=== PATIENT | male | born 1970 | race Hispanic/Latino ===

== ENCOUNTER 2022-07-24 16:33 | Inpatient (IN) | payer OTHER ==
[~2022-07-24] VITALS: Ht 172.7 cm; Wt 61.5 kg
[2022-07-24] MEDS ORDERED: 0.9%NACL 1000ML 1,000 ML IV ONE (17:00)
[2022-07-24] MEDS ORDERED: KETOROLAC 15MG/ML VIAL (15MG/ML) IV ONE (17:30)
[2022-07-24 17:31] LABS: ABG OXYGEN SATURATION 74.8 % (95.0-99.0); BASE EXCESS,VENOUS BLOOD GAS -16.1 (-2.0-3.0); HCO3,VENOUS BLOOD GAS 10.5 (21.0-28.0); PCO2,VENOUS BLOOD GAS 28 (35-48); PH,VENOUS BLOOD GAS 7.194 (7.350-7.450)
[2022-07-24 17:34] LABS: HEMATOCRIT 38.9 % (42-54); MEAN CORPUSCULAR HEMOGLOBIN 33.2 pg (27.0-33.0); MEAN CORPUSCULAR HGB CONC 34.2 g/dL (32.0-36.0); PLATELET COUNT (AUTO) 268 K/uL (130-400); RED BLOOD CELL COUNT(AUTO) 4.01 MIL/uL (4.50-6.20); RED CELL DISTRIBUTION WIDTH 12.1 % (11.0-15.5); WHITE BLOOD COUNT (AUTO) 5.9 K/uL (4.8-10.8)
[2022-07-24 17:39] LABS: BASOPHILS % (AUTO) 0.2 % (0.0-5.0); LYMPHOCYTES % (AUTO) 7.2 % (21.0-51.0); MONOCYTES % (AUTO) 2.2 % (3.0-13.0); NEUTROPHILS % (AUTO) 90.1 % (40.0-77.0)
[2022-07-24] MEDS ORDERED: INSULIN HUMULIN R 100 UNIT/ML 3ML IV ONE (18:00)
[2022-07-24] MEDS ORDERED: ONDANSETRON 4MG INJ IVP ONE (18:00)
[2022-07-24 18:01] LABS: ALBUMIN 2.7 g/dL (3.5-5.0); CREATININE 1.4 mg/dL (0.5-1.5); POTASSIUM 5.1 mmol/L (3.5-5.1); TOTAL PROTEIN, SERUM 6.5 g/dL (6.0-8.3)
[2022-07-24 18:06] LABS: HEMOGLOBIN A1C 9.8 % (4.0-6.0)
[2022-07-24] MEDS ORDERED: MORPHINE 4 MG SYG IVP ONE (19:00)
[2022-07-24] MEDS ORDERED: ZOLPIDEM TARTRATE 5 MG TAB PO PRN (19:30)
[2022-07-24] MEDS ORDERED: MANNITOL 20% IV SCH (19:30)
[2022-07-24] MEDS ORDERED: ONDANSETRON 4MG INJ IV PRN (19:30)
[2022-07-24] MEDS ORDERED: POTASSIUM CHLORIDE 10MEQ/100ML 100 ML IV PRN (19:30)
[2022-07-24] MEDS ORDERED: POTASSIUM CHLORIDE 10% ELIXIR 20 MEQ/15 ML UDCUP PO PRN (19:30)
[2022-07-24] MEDS ORDERED: INSULIN REGULAR, HUMAN 3ML 100 UNIT in 0.9%NACL 100ML 99 ML IV PRN ×2 (19:30)
[2022-07-24] MEDS ORDERED: ACETAMINOPHEN 325 MG TAB PO PRN ×2 (19:30)
[2022-07-24] MEDS ORDERED: KCL 20 MEQ ERTAB PO PRN (19:30)
[2022-07-24] MEDS ORDERED: DEXTROSE 5 %-0.45 % NACL 1,000 ML IV SCH (19:30)
[2022-07-24] MEDS ORDERED: POTASSIUM CHLORIDE 20 MEQ/10 ML VIAL IV SCH (19:30)
[2022-07-24] MEDS ORDERED: MAGNESIUM 2GM PREMIX 50ML 50 ML IV SCH (19:30)
[2022-07-24] MEDS ORDERED: INSULIN REGULAR, HUMAN 3ML 100 UNIT in 0.9%NACL 100ML 100 ML IV SCH ×2 (19:30)
[2022-07-24] MEDS ORDERED: LIDOCAINE HCL-MPF 1% 2ML VIAL IV PRN (19:30)
[2022-07-24] MEDS ORDERED: POTASSIUM CHLORIDE 20MEQ/100ML 100 ML IV PRN (19:30)
[2022-07-24] MEDS ORDERED: 0.9%NACL 1000ML 1,000 ML IV SCH (19:30)
[2022-07-24 21:10] LABS: CREATININE 1.3 mg/dL (0.5-1.5); MAGNESIUM 1.8 mg/dL (1.80-2.40); POTASSIUM 4.4 mmol/L (3.5-5.1)
[2022-07-24] MEDS: FAMOTIDINE 20MG VIAL IV SCH (21:19)
[2022-07-24] MEDS ORDERED: ALBUTEROL INHALER 90MCG/INH IH PRN (21:30)
[2022-07-24 22:51] LABS: APPEARANCE,URINE CLEAR (CLEAR); BILIRUBIN,URINE NEGATIVE (NEGATIVE); COLOR,URINE LIGHT-YELLOW (YELLOW); GLUCOSE, URINE (UA) >=1000 mg/dL (NEGATIVE); KETONES,URINE 150 mg/dL (NEGATIVE); LEUKOCYTE ESTERASE ,URINE NEGATIVE Leu/uL (NEGATIVE); NITRATE,URINE NEGATIVE (NEGATIVE); OCCULT BLOOD,URINE NEGATIVE (NEGATIVE); PH,URINE 5.5 (5.0-8.0); PROTEIN,URINE 70 mg/dL (NEGATIVE); UROBILINOGEN,URINE 0.2 mg/dL (0.2-1.0)
[2022-07-24 22:58] LABS: MUCUS,URINE RARE LPF (None Seen); OTHER CASTS, URINE 1 /LPF (None Seen)
[2022-07-25] MEDS: MORPHINE 4 MG SYG IV PRN (00:55)
[2022-07-25 04:43] LABS: ABG OXYGEN SATURATION 42.2 % (95.0-99.0); BASE EXCESS,VENOUS BLOOD GAS -9.4 (-2.0-3.0); HCO3,VENOUS BLOOD GAS 16.3 (21.0-28.0); PCO2,VENOUS BLOOD GAS 35 (35-48); PH,VENOUS BLOOD GAS 7.284 (7.350-7.450)
[2022-07-25 05:23] LABS: CREATININE 1.4 mg/dL (0.5-1.5); POTASSIUM 4.5 mmol/L (3.5-5.1)
[2022-07-25] MEDS ORDERED: ACETAMINOPHEN 650 MG SUPPOSITORY RC PRN (08:00)
[2022-07-25] MEDS: METOCLOPRAMIDE 10 MG/2 ML VIAL IVP SCH ×3 (08:44→16:22)
[2022-07-25] MEDS: FAMOTIDINE 20MG VIAL IV SCH ×2 (08:44→19:59)
[2022-07-25] MEDS: ENOXAPARIN SODIUM 40 MG/0.4 ML SYRINGE SQ SCH (08:45)
[2022-07-25 10:23] LABS: CREATININE 1.2 mg/dL (0.5-1.5); MAGNESIUM 1.6 mg/dL (1.80-2.40); POTASSIUM 4.4 mmol/L (3.5-5.1)
[2022-07-25] MEDS: MAGNESIUM 2GM PREMIX 50ML 50 ML IV PRN (12:37)
[2022-07-25] MEDS: HYDROCODONE/ACETAMINOPHEN 5/325 MG TAB PO PRN ×2 (12:55→20:00)
[2022-07-25] MEDS ORDERED: D5W-1/2 NS/20MEQ KCL 1,000 ML IV SCH (15:00)
[2022-07-25 15:45] VITALS: BP 107/72
[2022-07-25 16:00] VITALS: BP 112/73
[2022-07-25 16:21] LABS: CREATININE 1.1 mg/dL (0.5-1.5); POTASSIUM 4.4 mmol/L (3.5-5.1)
[2022-07-25 17:00] VITALS: BP 117/75
[2022-07-25] MEDS ORDERED: MAGNESIUM 2GM PREMIX 50ML 50 ML IV PRN (17:30)
[2022-07-25 18:00] VITALS: BP 115/83
[2022-07-25] MEDS ORDERED: ACETAMINOPHEN 500 MG TABLET PO PRN (18:00)
[2022-07-25] MEDS: INSULIN HUMULIN R 100 UNIT/ML 3ML SQ SCH (18:02)
[2022-07-25 20:00] VITALS: BP 121/93
[2022-07-25] MEDS ORDERED: INSULIN HUMULIN R 100 UNIT/ML 3ML SQ SCH (21:00)
[2022-07-26] VITALS: BP 141/76
[2022-07-26] MEDS: HYDROCODONE/ACETAMINOPHEN 5/325 MG TAB PO PRN ×3 (00:37→11:59)
[2022-07-26 04:00] VITALS: BP 98/65
[2022-07-26 04:28] LABS: BASOPHILS % (AUTO) 0.1 % (0.0-5.0); EOSINOPHILS % (AUTO) 0.1 % (0.0-8.0); HEMATOCRIT 30.8 % (42-54); LYMPHOCYTES % (AUTO) 19.7 % (21.0-51.0); MEAN CORPUSCULAR HEMOGLOBIN 32.5 pg (27.0-33.0); MEAN CORPUSCULAR HGB CONC 34.4 g/dL (32.0-36.0); MEAN CORPUSCULAR VOLUME 94.5 fL (79-99); MONOCYTES % (AUTO) 9.3 % (3.0-13.0); PLATELET COUNT (AUTO) 208 K/uL (130-400); RED BLOOD CELL COUNT(AUTO) 3.26 MIL/uL (4.50-6.20); RED CELL DISTRIBUTION WIDTH 12.2 % (11.0-15.5); WHITE BLOOD COUNT (AUTO) 7.2 K/uL (4.8-10.8)
[2022-07-26 04:41] LABS: CREATININE 1.1 mg/dL (0.5-1.5); MAGNESIUM 1.8 mg/dL (1.80-2.40); POTASSIUM 4.5 mmol/L (3.5-5.1)
[2022-07-26] MEDS: INSULIN HUMULIN R 100 UNIT/ML 3ML SQ SCH ×3 (06:18→11:46)
[2022-07-26 08:00] VITALS: BP 116/74
[2022-07-26] MEDS: ENOXAPARIN SODIUM 40 MG/0.4 ML SYRINGE SQ SCH (08:54)
[2022-07-26] MEDS: FAMOTIDINE 20MG VIAL IV SCH (08:54)
[2022-07-26] MEDS: MAGNESIUM 2GM PREMIX 50ML 50 ML IV PRN (08:54)
[2022-07-26] MEDS: METOCLOPRAMIDE 10 MG/2 ML VIAL IVP SCH ×2 (08:54→11:38)
[2022-07-26] MEDS: MORPHINE 4 MG SYG IV PRN (08:55)
[2022-07-26] MEDS ORDERED: INSULIN GLARGINE 100 UNITS/ML 10 ML VIAL SQ SCH (09:00)
[2022-07-26 12:00] VITALS: BP 120/90
[2022-07-26] MEDS ORDERED: INSULIN HUMULIN R 100 UNIT/ML 3ML SQ SCH (12:20)
== END 2022-07-26 14:50 | disposition home or self-care (01) | DRG 637 ==
LOC: EDH 16:33 → EDHIP 16:34 → 2CH 07-25 15:03 → 2AH 07-25 20:23
PROVIDERS: ADMIT Internal Medicine; ATTEND Internal Medicine
DX: E11.10 Type 2 diabetes mellitus with ketoacidosis without coma (principal); U07.1 COVID-19; E11.43 Type 2 diabetes mellitus with diabetic autonomic (poly)neuropathy; K31.84 Gastroparesis; I10 Essential (primary) hypertension; J45.909 Unspecified asthma, uncomplicated; F17.210 Nicotine dependence, cigarettes, uncomplicated; Z63.8 Other specified problems related to primary support group; Z79.4 Long term (current) use of insulin; Z91.19 Patient's noncompliance with other medical treatment and regimen
CPT/HCPCS: 36415; 36600; 71045; 80048; 80053; 81001; 82010; 82435; 82803; 82947; 82948; 83036; 83605; 83690; 83735; 84132; 84295; 85025; 87635; 87804; 99291; G0378; J1650; J1815; J1885; J2270; J2405; J2765; J3475; J3480; J3490; J7042